=== PATIENT | female | born 1985 | race Caucasian/White ===

== ENCOUNTER 2022-12-02 17:52 | Emergency (ER) | payer OTHER ==
[~2022-12-02] VITALS: Ht 165.1 cm; Wt 108.9 kg
[~2022-12-02 17:52] MED LIST: INDOMETHACIN50 MG PO; JULEBER 28 DAY1 EACH PO
[2022-12-02] MEDS ORDERED: PAXLOVID 300-11 EACH PO (20:45)
== END 2022-12-02 21:01 | disposition home or self-care (01) ==
LOC: ED 17:52
DX: U07.1 COVID-19 (principal); J45.909 Unspecified asthma, uncomplicated; Z79.899 Other long term (current) drug therapy
CPT/HCPCS: 99283